=== PATIENT | female | born 1945 | race Caucasian/White ===

== ENCOUNTER 2019-10-03 16:12 | Observation (INO) | payer MEDICARE, OTHER, SELFPAY ==
--- NOTE | ~2019-10-03 | CT_ITS ---
EXAMINATION: CT abdomen pelvis w con DATE: 10/04/2019 13:46 INDICATION: Low abdominal pain. TECHNIQUE: Computed tomography (CT) of the abdomen and pelvis was performed with 100 mL Omnipaque 350 intravenous contrast. Automated exposure control and iterative reconstruction technique were employe d. The dose-length product was 167.22 mGy-cm. COMPARISON: CT abdomen and pelvis 08/04/2019 FINDINGS: The visualized portions of the lung bases demonstrate emphysema. There are mild patchy airs pace opacities in left lower lobe and lingula, consistent with pneumonia. There is a small left pleur al effusion. The heart size is normal. No pericardial effusion. The liver is normal. There are change s of cholecystectomy. The spleen, pancreas, and adrenal glands are normal. There is cortical thinning of the kidneys. There are cysts in left kidney measuring up to 13 mm. There are greater than 10 ston es in right kidney measuring up to 5 mm. There are least 6 stones in left kidney measuring up to at l east 3 mm. There are scattered diverticula in the colon. There is wall thickening of the sigmoid colo n and descending colon with adjacent fat stranding. There is a 4.2 x 2.6 x 4.7 cm abscess adjacent to sigmoid colon. There are no dilated loops of bowel. The appendix is not visualized. There are no pat hologically enlarged lymph nodes. There is no free intraperitoneal fluid. There is severe lumbar spon dylosis. Again seen is a subacute burst fracture of T12. IMPRESSION: 1. Sigmoid diverticulitis with 4.2 x 2.6 x 4.7 cm perisigmoid abscess. 2. Mild pneumonia involving left lower lobe and lingula. 3. Small left pleural effusion. Reviewed, dictated and finalized at location A. [facility]
[2019-10-03 16:40] VITALS: BP 116/74; PULSE 118; RESP 22; TEMP 36.5; O2SAT 97
--- NOTE | 2019-10-03 16:47 | ED.NAVMDI ---
HPI - Nausea/Vomiting/Diarrhea General Chief complaint: Nausea/Vomiting/Diarrhea Stated complaint: 74 YO female w/ chronic respiratory failure on 2L O2 via NC (At baseline) here c/o N/V for 2-4 days. Patient states she hasn't felt well and has had decreased PO intake. Upset stomach and diarrhea Related Data Home Medications Medication Instructions Recorded Confirmed Flovent HFA 2 puff INHALATION Q12H 08/04/19 10/03/19 Stiolto Respimat 2 puff INHALATION Q24H 08/04/19 10/03/19 levalbuterol tartrate [Xopenex HFA] 2 inh INHALATION Q6H PRN 08/04/19 10/03/19 omeprazole 40 mg PO DAILY 08/04/19 10/03/19 dexamethasone 4 mg tablet 2 mg PO BID 09/15/19 10/03/19 acetaminophen 1,000 mg PO Q6H PRN 10/03/19 10/03/19 furosemide 40 mg PO DAILY 10/03/19 10/03/19 ibuprofen 800 mg PO Q6H PRN 10/03/19 10/03/19 levetiracetam 500 mg PO BID 10/03/19 10/03/19 potassium chloride 20 meq PO DAILY 10/03/19 10/03/19 Allergies Allergy/AdvReac Type Severity Reaction Status Date / Time arformoterol [Brovana] Allergy Intermediate edema of Verified 08/17/19 08:35 extremities Review of Systems Review of Systems: All systems reviewed & are unremarkable except as noted in HPI and below Constitutional: Constitutional: Reports as per HPI, Denies body ache(s), Denies chills, Reports fatigue, Denies fever(s) and Reports weakness Cardiovascular: Cardiovascular: Reports as per HPI and Reports no additional cardiovascular complaints Respiratory: Respiratory: Reports as per HPI and Reports no additional respiratory complaints Gastrointestinal: Gastrointestinal: Reports abdominal pain, Reports GI cramping, Reports diarrhea, Reports nausea and Reports vomiting Genitourinary: Genitourinary: Reports no additional female genitourinary complaints and Reports as per HPI Musculoskeletal: Musculoskeletal: Reports no additional musculoskeletal complaints PMFSH Past Medical History Medical History Asthma Brain metabolic disorder Chronic respiratory failure with hypoxia COPD (chronic obstructive pulmonary disease) Depression RODDY (generalized anxiety disorder) Lower extremity edema Lung cancer Malignant neoplasm of lower lobe of left lung Underweight Vitamin D deficiency Surgical History Surgical History H/O: hysterectomy Hx of appendectomy Hx of cholecystectomy Family History Family History (Updated 08/17/19 @ 08:40 by Ashley Franks) Mother Cancer Father Diabetes mellitus Sibling Acute myocardial infarction Colon cancer Social History Social History (Updated 08/17/19 @ 08:45 by Ashley Franks) Smoking packs per day: 1 Smoking cigarettes per day: 20.0 Years smoked: 55 Smoking pack-years: 55.00 Smoking status: Former smoker Tobacco type: cigarettes Additional living arrangements comments: . 4 children. 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 Exam Const: General: cooperative, alert, awake, Physically active and tired appearing Cardio: Jugular venous distension: no JVD Palpation: normal PMI Rate: regular rate Rhythm: regular rhythm Heart sounds: S1 normal heart sound present and S2 normal heart sound present GI: Inspection: normal to inspection GI Palp: Yes abdominal tenderness (Generalized abd TTP), No Rigid due to palpation, No Rebound tenderness present and No Bladder palpation abnormal Percussion: Yes normal to percussion Auscultation: normal bowel sounds Rectal Exam: deferred Course Course Emergency Course: Patient looks weak w/ electrolyte abnormalities. Will admits for observation. Vital Signs Vital signs: Vital Signs Temperature 36.5 C 10/03/19 16:40 Pulse Rate 118 H 10/03/19 16:40 Respiratory Rate 22 H 10/03/19 16:40 Blood Pressure 116/74 10/03/19 16:40 Pulse Oximetry 97 10/03/19 16:40 Temperature 36.5 C 09/16
[2019-10-03 16:53] LABS: Hematocrit 36.1 % (35.0-42.0); Hemoglobin 11.8 g/dL (11.7-13.8); Mean Corpuscular HGB Conc 32.7 g/dL (32.0-36.0); Mean Corpuscular Hemoglobin 32.2 pg (27.0-31.0); Mean Corpuscular Volume 98.6 fL (78.0-102.0); Mean Platelet Volume 9.7 fl (9.2-11.8); Platelet Count Result 449 K/mm3 (150-420); Red Blood Count 3.66 M/mm3 (4.20-5.40); Red Cell Distribution Width 15.9 % (11.6-14.4); White Blood Count 11.3 K/mm3 (4.8-10.8)
[2019-10-03] MEDS: SODIUM CHLORIDE 0.9% IV 500 ML 999 ML IV CONT (16:54)
[2019-10-03] MEDS: ONDANSETRON INJ 4 MG/2 ML VIAL IV PUSH (16:55)
[2019-10-03] MEDS: DICYCLOMINE HCL INJ 20 MG/2 ML VIAL IM (16:59)
[2019-10-03 17:17] LABS: Band Neutrophils Percent 1 % (0-6); Lymphocytes Absolute Manual 0.45 K/mm3 (1.1-4.5); Monocytes Absolute Manual 0.33 K/mm3 (0.1-0.90); Monocytes Percent Manual 3 % (3-9); Neutrophils Percent Manual 92 % (46-73); Total Cells Counted 100
--- NOTE | 2019-10-03 17:17 | PC.NURSE ---
Pt unable to provide urine sample at this time.
[2019-10-03 17:20] LABS: Alanine Aminotransferase 19 U/L (14-59); Albumin Level 2.4 g/dL (3.4-5.0); Alkaline Phosphatase 125 U/L (46-116); Anion Gap 15.8 mmol/L (7-16); Aspartate Amino Transferase 20 U/L (15-37); Bilirubin,Total 0.9 mg/dL (0.00-1.00); Blood Urea Nitrogen 44 mg/dL (7-18); Calcium 9.1 mg/dL (8.5-10.1); Carbon Dioxide 31 mmol/L (21-32); Chloride 94 mmol/L (98-108); Estimated CRCL calculation 22 ml/min; Estimated Glomerular Filt Rate 37; Glucose 164 mg/dL (70-99); Osmolality Calculated 301 mOsm/kg (285-295); Potassium 2.8 mmol/L (3.5-5.1); Sodium 138 mmol/L (136-145); Total Protein 7.4 g/dL (6.4-8.2)
[2019-10-03 17:29] LABS: Lipase 52 U/L (73-393)
[2019-10-03] MEDS: SODIUM CHLORIDE 0.9% IV 1,000 ML 150 ML IV CONT (17:45)
[2019-10-03] MEDS: KCL 20 MEQ/SW 100 ML 100 ML 50 MEQ IVPB (17:46)
[2019-10-03] MEDS: POTASSIUM CHLORIDE 20 MEQ TABLET 40 MEQ PO (17:46)
[2019-10-03 17:51] LABS: Magnesium 1.7 mg/dL (1.8-2.4); Phosphorus 5.3 mg/dL (2.6-4.7)
[2019-10-03 17:52] VITALS: BP 151/86; PULSE 100; RESP 22; O2SAT 98
[2019-10-03 19:12] LABS: Appearance Urine Clear (Clear); Bilirubin Urine 1+ (Negative); Blood Urine Negative (Negative); Color Urine Yellow (Yellow); Glucose Urine UA Negative (Negative); Ketones Urine Negative (Negative); Leukocyte Esterase Ur Negative LEU/UL (Negative); Nitrate Urine Negative (Negative); Protein Urine Negative (Negative); pH Urine 6.5 (5.0-8.0)
[2019-10-03 19:13] LABS: Add Urine Microscopic? NO
[2019-10-03 20:00] VITALS: BP 110/73; BP 122/78; PULSE 106; RESP 18; RESP 22; TEMP 37; O2SAT 95; O2SAT 98
--- NOTE | 2019-10-03 20:00 | ADMGEN ---
This patient, Laine Kate, was admitted to 2nd Floor Room 205-1. Patient oriented to hospital policies and general routines including ID bracelet, bed and alarms, visiting hours, pain management, procedures, bathroom and other care routines, personal items, smoking policy, room service/diet, and visiting hours. Information on how to activate the Rapid Response Team has been discussed. Patient is encouraged to report perceived risks to care and to ask questions if they do not understand what they are told or what they should do.
[2019-10-03 20:04] VITALS: BMI 16.2
[2019-10-03] MEDS: DEXTROSE 5%/0.45% SOD CHL 1,000 ML 100 ML IV CONT (20:37)
[2019-10-03] MEDS: FLUTICASONE PROP 110 MCG INHALER 12 GM (*SP) 2 PUFF INHALATION (20:37)
--- NOTE | 2019-10-03 21:02 | PC.NURSE ---
pt resting in bed, denies any nausea or pain at this time, belongings and call light within reach, no evidence of distress noted.
--- NOTE | 2019-10-03 22:00 | PC.NURSE ---
pt sleeping, respirations even and regular, no evidence of distress noted, call light and belongings within reach
--- NOTE | 2019-10-03 23:10 | PC.NURSE ---
pt sleeping, respirations even and regular, no evidence of distress noted, call light and belongings within reach
--- NOTE | 2019-10-04 00:37 | PC.NURSE ---
Spoke to Dr. Bates regarding a possible drug interaction with dicyclomine.
[2019-10-04 00:45] VITALS: BP 122/72; PULSE 104; RESP 20; TEMP 37.3; O2SAT 96
--- NOTE | 2019-10-04 00:45 | PC.NURSE ---
pt denies any nausea at this time, pt transferred to bsc and back to bed with assistance, pt still weak but tolerated well, belongings and call light within reach
--- NOTE | 2019-10-04 01:45 | PC.NURSE ---
pt resting in bed, denies any nausea or pain at this time, no evidence of distress noted, belongings and call light within reach.
[2019-10-04] MEDS: DICYCLOMINE HCL 10 MG CAPSULE PO ×2 (01:50→08:42)
--- NOTE | 2019-10-04 02:20 | PC.NURSE ---
pt resting in bed IV fluids infusing, denies any nausea at this time,
--- NOTE | 2019-10-04 03:25 | PC.NURSE ---
pt sleeping, respirations even and regular, no evidence of distress noted, call light and belongings within reach, IV fluids infusing
[2019-10-04 04:30] VITALS: BP 116/71; PULSE 96; RESP 20; TEMP 36.7; O2SAT 95
--- NOTE | 2019-10-04 04:30 | PC.NURSE ---
pt resting in bed, vitals taken, denies any nausea, iv fluids infusing well
--- NOTE | 2019-10-04 05:30 | PC.NURSE ---
pt sleeping, no evidence of distress noted, iv fluids infusing well
[2019-10-04 05:35] LABS: Basophils Absolute Auto 0.04 K/mm3 (0.00-0.10); Basophils Percent Auto 0.5 % (0.0-1.0); Eosinophils Absolute Auto 0.01 K/mm3 (0.02-0.50); Eosinophils Percent Auto 0.1 % (1.0-6.0); Hemoglobin 9.7 g/dL (11.7-13.8); Immature Granulocyte Absolute 0.29 K/mm3 (0.00-0.00); Immature Granulocyte Percent A 3.7 % (0.0-0.0); Lymphocytes Absolute Auto 0.48 K/mm3 (1.10-4.50); Lymphocytes Percent Auto 6.1 % (18.0-42.0); Mean Corpuscular HGB Conc 32.3 g/dL (32.0-36.0); Mean Corpuscular Hemoglobin 32.9 pg (27.0-31.0); Mean Corpuscular Volume 101.7 fL (78.0-102.0); Mean Platelet Volume 9.6 fl (9.2-11.8); Monocytes Absolute Auto 0.43 K/mm3 (0.10-0.90); Monocytes Percent Auto 5.5 % (2.0-11.0); Neutrophils Absolute Auto 6.6 K/mm3 (1.7-7.2); Neutrophils Percent Auto 84.1 % (50.0-70.0); Nucleated Red Blood Cells Absolute Auto 0.02 K/mm3 (0.00-0.00); Nucleated Red Blood Cells Perc 0.3 % (0-0.0); Platelet Count Result 399 K/mm3 (150-420); Red Blood Count 2.95 M/mm3 (4.20-5.40); Red Cell Distribution Width 16.3 % (11.6-14.4); White Blood Count 7.8 K/mm3 (4.8-10.8)
[2019-10-04 05:47] LABS: Blood Urea Nitrogen 30 mg/dL (7-18); Calcium 8.3 mg/dL (8.5-10.1); Carbon Dioxide 30 mmol/L (21-32); Chloride 104 mmol/L (98-108); Estimated CRCL calculation 39 ml/min; Estimated Glomerular Filt Rate > 60; Glucose 149 mg/dL (70-99); Magnesium 1.8 mg/dL (1.8-2.4); Osmolality Calculated 303 mOsm/kg (285-295); Sodium 142 mmol/L (136-145)
[2019-10-04] MEDS: DEXTROSE 5%/0.45% SOD CHL 1,000 ML 100 ML IV CONT (07:11)
--- NOTE | 2019-10-04 07:25 | PC.NURSE ---
Resting in bed, oxygen on at 2L as per home dose, IVF's infusing as ordered
[2019-10-04 07:36] VITALS: BP 115/73; PULSE 94; PULSE 96; RESP 20; TEMP 36.8; O2SAT 96
--- NOTE | 2019-10-04 08:10 | PC.NURSE ---
Requesting toast, clear liquid tray given at this time,
--- NOTE | 2019-10-04 08:10 | PCDIET ---
Clear liquids ordered for patient, given jello and water at this time, requesting toast
[2019-10-04] MEDS: FLUTICASONE PROP 110 MCG INHALER 12 GM (*SP) 2 PUFF INHALATION (08:40)
[2019-10-04] MEDS: FUROSEMIDE 40 MG TABLET PO (08:41)
[2019-10-04] MEDS: PANTOPRAZOLE 40 MG TABLET PO (08:41)
[2019-10-04] MEDS: levETIRAcetam 500 MG TABLET PO (08:41)
[2019-10-04] MEDS: DEXAMETHASONE 4 MG TABLET 2 MG PO (08:41)
[2019-10-04] MEDS: ENOXAPARIN 30 MG/0.3 ML SYRINGE SUB-Q (08:43)
--- NOTE | 2019-10-04 08:45 | PC.NURSE ---
pietro russo, requesting toast, hospitalist approved toast to be given
[2019-10-04] MEDS: POTASSIUM CHLORIDE 20 MEQ TABLET PO (08:47)
--- NOTE | 2019-10-04 09:02 | PC.NURSE ---
ate 1/4 of toast, fluids infusing,
--- NOTE | 2019-10-04 09:55 | PC.NURSE ---
SBA up to commode, weakness noted, purse lip breathing noted, fluids infusing, feels like bowels need to move
--- NOTE | 2019-10-04 10:00 | PC.NURSE ---
States x2 loose stools at this time, requesting something for stools, educated on medication being added (calcium, potassium, magnesium), not happy about so many medications being added
[2019-10-04] MEDS: BUDESONIDE/FORMOTEROL (*SP) 160-4.5 MCG 6 GM INH 2 PUFF INHALATION (10:39)
[2019-10-04] MEDS: MAGNESIUM OXIDE 400 MG TABLET PO (10:41)
[2019-10-04] MEDS: CALCIUM CARBONATE (TUMS) 500 MG (200 MG ELEMENTAL) PO (10:41)
--- NOTE | 2019-10-04 11:04 | PC.NURSE ---
Resting in bed, oxygen on fluids infusing
[2019-10-04 11:36] VITALS: PULSE 93; RESP 20
[2019-10-04] MEDS: LOPERAMIDE HCL 2 MG CAPSULE PO (11:44)
[2019-10-04 11:45] VITALS: PULSE 95; RESP 20
--- NOTE | 2019-10-04 11:47 | PC.NURSE ---
Up to BSC, loose stools continue, loperimide given for loose stool. fluids infusing
[2019-10-04 12:00] VITALS: BP 103/63; PULSE 103; RESP 22; TEMP 36.3; O2SAT 97
--- NOTE | 2019-10-04 12:08 | PC.NURSE ---
Resting in bed, fluids infusing
--- NOTE | 2019-10-04 12:39 | PM.IMHP ---
H&P: HPI History of Present Illness Chief complaint: Upset stomach and diarrhea <LAUREN Pineda - Last Filed: 10/04/19 13:55> Narrative: Laine Kate is a 74 year old female who presented to the ED with nausea, vomiting and diarrhea. She has a past medical history of asthma, chronic respiratory failure with hypoxia, COPD, depression, generalized anxiety disorder, lower extremity edema, lung cancer, metastatic disease, brain cancer, underweight, vitamin-D deficiency. She was admitted for dehydration, hypokalemia, and gastroenteritis. according to patient she has [place] ill for the last 2 days. she has a decreased appetite with nausea, vomiting and diarrhea. She has been unable to get out of bed and has been sleeping a lot. She also complains of headaches, lightheadedness, generalized weakness and abdominal cramping and lower quadrant pain. She noted that her son and [id number] insisted that she comes to the ED for treatment. Today patient is very anxious to discharge but is obviously too weak to do so. She does continue to have diarrhea, she is able to tolerate her meals. She is currently on a bland diet, with orders to advances as tolerated. Patient also complains of a headache according to patient she was diagnosed with left-sided lung cancer 1 year ago completed 5 rounds of radiation. She also noted that the cancer had metastasized to her brain that she has not had treatment for yet. She is currently seeing an oncologist and have procedure scheduled this week. She also noted that she later found out that the cancer had metastasized to her right lung and she was also given 5 rounds of radiation for that area. She did note that due to her brain cancer she has had headaches and visual disturbance.current vital signs 36.3, 103, 22, 97% 2 L nasal cannula, 103/63. patient is being admitted for dehydration, gastroenteritis, and hypokalemia. while in the ED imaging indicating emphysema, patient white blood cells were slightly elevated at 13.2, potassium was at 4.3, magnesium and calcium was also low. A CT of the abdomen/ pelvis and stool work up will be completed this stay.Patient denies CP, palpitation, extremity numbness, dizziness, chills or fever. <LAUREN Pineda - Last Filed: 10/04/19 13:55> Review of Systems Constitutional: Constitutional: Reports fatigue, Reports headache(s), Reports poor appetite, Reports weakness and Reports weight loss <LAUREN Pineda - Last Filed: 10/04/19 13:55> Eyes: Eyes: Reports change in vision ( due to brain cancer) <LAUREN Pineda - Last Filed: 10/04/19 13:55> Cardiovascular: Cardiovascular: Denies chest pain at rest, Denies chest pain with activity, Denies edema, Denies leg edema, Reports lightheadedness, Reports dyspnea on exertion and Reports orthopnea <LAUREN Pineda - Last Filed: 10/04/19 13:55> Respiratory: Respiratory: Reports dyspnea and Reports dyspnea on exertion <LAUREN Pineda - Last Filed: 10/04/19 13:55> Gastrointestinal: Gastrointestinal: Reports abdominal pain ( lower quads), Reports GI cramping, Reports diarrhea, Reports nausea and Reports vomiting <LAUREN Pineda - Last Filed: 10/04/19 13:55> Genitourinary: Genitourinary: Denies hematuria, Denies dysuria and Denies urinary urgency <LAUREN Pineda - Last Filed: 10/04/19 13:55> Musculoskeletal: Musculoskeletal: Reports muscle weakness <LAUREN Pineda Last Filed: 10/04/19 13:55> Integumentary/Breasts: Skin/Breast: Reports system reviewed and no additional complaints, except as docu <LAUREN Pineda - Last Filed: 10/04/19 13:55> Neurologic: Reports headache(s) <LAUREN Pineda - Last Filed: 10/04/19 13:55> Psychiatric: Psychiatric: Reports anxiety <LAUREN Pineda - Last Filed: 10/04/19 13:55> [facility] Social History Social History: Social History (Updated 08/17/19 @ 08:45 by Ashley Bacon
[2019-10-04] MEDS: ACETAMINOPHEN 500 MG TABLET 1000 MG PO (12:55)
--- NOTE | 2019-10-04 13:22 | PC.NURSE ---
Up to chair, awaiting imaging for ct scan to be done
--- NOTE | 2019-10-04 13:48 | PC.NURSE ---
Returned from CT scan, up to commode with SBA
--- NOTE | 2019-10-04 14:33 | PC.NURSE ---
Pateint has been accepted at [facility], no bed at this time, fluids infusing, call light in reach
--- NOTE | 2019-10-04 14:43 | PM.DS ---
DS: Diagnosis Admitting Diagnosis Admitting Diagnosis: Secondary malignant neoplasm of unspecified site and perisigmoid abscess Discharge Diagnosis (1) Metastatic disease: Code(s): C79.9 - Secondary malignant neoplasm of unspecified site Status: Acute Assessment and Plan: - patient was diagnosed with left-sided lung CA 1 year ago, and treated with 5 sessions of radiation. It metastasized to her brain, she is currently being seen by oncology for brain CA, it also metastasized to her right lung which she also received 5 sessions of radiation. -Her oncologist are at [facility]- Dr. Tidwell at [phone] Mcdonald [phone]. I will contact them on Saturday, concerning patient's condition. patient noted that she has several tests and imaging schedule this week. (2) Acute hypokalemia: Code(s): E87.6 - Hypokalemia Status: Acute Assessment and Plan: - patient discharged to [facility] - continue potassium supplement, with additional dosage and stop diuretics - no cardiac issues at this time (3) Dehydration: Code(s): E86.0 - Dehydration Status: Acute Assessment and Plan: secondary to nausea and vomiting - correct underlying condition -continue to hydrate via IV - control nausea and vomiting and encourage p.o. intake patient transfer to [facility] (4) Gastroenteritis: Code(s): K52.9 - Noninfective gastroenteritis and colitis, unspecified Status: Acute Assessment and Plan: - continue Zofran for nausea - patient's WBC on admission 13.2 now within normal limits - started Cipro IV antibiotics Flagyl added per oncologist accepting physician (5) Weakness: Code(s): R53.1 - Weakness Status: Acute Assessment and Plan: - secondary to dehydration and gastroenteritis . (6) COPD (chronic obstructive pulmonary disease): Code(s): J44.9 - Chronic obstructive pulmonary disease, unspecified Status: Acute Assessment and Plan: - continue supplementary oxygen , patient on continues 2 L nasal cannular at home. - continue scheduled nebulizers and inhalers. - continue steroids (7) Lung cancer: Code(s): C34.90 - Malignant neoplasm of unspecified part of unspecified bronchus or lung Status: Acute Assessment and Plan: - patient was diagnosed with left-sided lung CA 1 year ago, and treated with 5 sessions of radiation. It metastasized to her brain, she is currently being seen by oncology for brain CA, it also metastasized to her right lung which she also received 5 sessions of radiation. -Her oncologist are at [facility]- Dr. Tidwell at [phone] Mcdonald [phone]. I will contact them on Saturday, concerning patient's condition. patient noted that she has several tests and imaging schedule this week. (8) Diarrhea: Code(s): R19.7 - Diarrhea, unspecified Status: Acute Assessment and Plan: secondary to gastroenteritis - started Imodium - stool panel pending - (9) DVT prophylaxis: Code(s): Z29.9 - Encounter for prophylactic measures, unspecified Status: Acute Assessment and Plan: continue Lovenox (10) Diverticulitis of both large and small intestine with abscess without bleeding: Code(s): K57.40 - Diverticulitis of both small and large intestine with perforation and abscess without bleeding Status: Acute Assessment and Plan: CT of the abdomen indicate-Sigmoid diverticulitis with 4.2 x 2.6 x 4.7 cm perisigmoid abscess. 2. Mild pneumonia involving left lower lobe and lingula. 3. Small left pleural effusion. - patient will transfer to [facility] accepted by Dr. Garcia oncology and will consult surgery - started Mariaa and Shalini per [facility] oncologist Dr. LARSON: Summary Hospital Course Hospital Course: refer to H&P CT of the abdomen and pelvis completed today indicates-Sigmoid diverticulitis with 4.2 x 2.6
[2019-10-04] MEDS: CIPROFLOXACIN 400 MG/D5W 200ML 200 ML 200 MG IVPB (14:50)
--- NOTE | 2019-10-04 15:18 | PC.NURSE ---
Room assignment obtained at [facility], patient updated, cipro infusing, fluids infusing, oxygen on at 2L NC
--- NOTE | 2019-10-04 15:38 | PC.NURSE ---
Report to Nikki at [facility]
[2019-10-04] MEDS: metroNIDAZOLE 500 MG/ISO 100ML 500 MG/100 ML BAG 100 MG IVPB (16:00)
--- NOTE | 2019-10-04 17:05 | PC.NURSE ---
Transfer via [facility] to [facility], fluids continue to infuse at this time, personal items sent with son. copy of hospital record with EMS to deliver to receiving hospital
[2019-10-04 17:23] LABS: Anion Gap 15.2 mmol/L (7-16); Blood Urea Nitrogen 23 mg/dL (7-18); Calcium 8.2 mg/dL (8.5-10.1); Carbon Dioxide 24 mmol/L (21-32); Chloride 101 mmol/L (98-108); Estimated CRCL calculation 34 ml/min; Estimated Glomerular Filt Rate > 60; Glucose 128 mg/dL (70-99); Osmolality Calculated 289 mOsm/kg (285-295); Potassium 3.2 mmol/L (3.5-5.1); Sodium 137 mmol/L (136-145)
[2019-10-04 21:57] LABS: Platelet Estimate Increased (Adequate)
--- NOTE | 2019-10-05 08:12 | P.PNCROSS_ITS ---
Event Note Event Note Event Note: Event note for 10/04/19 For this patient encounter, I reviewed the CVIR TECH or PA documentation, treatment plan, and medical decision making; and I had [id number] time with this patient. Pt. tender LLQ, recommend CT abd/pelvis with contrast.
--- NOTE | 2019-10-05 08:12 | PM.EVENT ---
Event Note Event Note Event Note: Event note for 10/04/19 For this patient encounter, I reviewed the [employer] EQUIPMENT TENDER or PA documentation, treatment plan, and medical decision making; and I had [id number] time with this patient. Pt. tender LLQ, recommend CT abd/pelvis with contrast.
--- NOTE | 2019-10-09 10:20 | PM.DS ---
DS: Diagnosis Admitting Diagnosis Admitting Diagnosis: Secondary malignant neoplasm of unspecified site Discharge Diagnosis (1) Metastatic disease: Code(s): C79.9 - Secondary malignant neoplasm of unspecified site Status: Acute Assessment and Plan: - patient was diagnosed with left-sided lung CA 1 year ago, and treated with 5 sessions of radiation. It metastasized to her brain, she is currently being seen by oncology for brain CA, it also metastasized to her right lung which she also received 5 sessions of radiation. -Her oncologist are at [facility]- Dr. Tidwell at [phone] Mcdonald [phone]. I will contact them on Saturday, concerning patient's condition. patient noted that she has several tests and imaging schedule this week. (2) Acute hypokalemia: Code(s): E87.6 - Hypokalemia Status: Acute Assessment and Plan: - patient discharged to [facility] - continue potassium supplement, with additional dosage and stop diuretics - no cardiac issues at this time (3) Dehydration: Code(s): E86.0 - Dehydration Status: Acute Assessment and Plan: secondary to nausea and vomiting - correct underlying condition -continue to hydrate via IV - control nausea and vomiting and encourage p.o. intake patient transfer to [facility] (4) Gastroenteritis: Code(s): K52.9 - Noninfective gastroenteritis and colitis, unspecified Status: Acute Assessment and Plan: - continue Zofran for nausea - patient's WBC on admission 13.2 now within normal limits - started Cipro IV antibiotics Flagyl added per oncologist accepting physician (5) Weakness: Code(s): R53.1 - Weakness Status: Acute Assessment and Plan: - secondary to dehydration and gastroenteritis . (6) COPD (chronic obstructive pulmonary disease): Code(s): J44.9 - Chronic obstructive pulmonary disease, unspecified Status: Acute Assessment and Plan: - continue supplementary oxygen , patient on continues 2 L nasal cannular at home. - continue scheduled nebulizers and inhalers. - continue steroids (7) Lung cancer: Code(s): C34.90 - Malignant neoplasm of unspecified part of unspecified bronchus or lung Status: Acute Assessment and Plan: - patient was diagnosed with left-sided lung CA 1 year ago, and treated with 5 sessions of radiation. It metastasized to her brain, she is currently being seen by oncology for brain CA, it also metastasized to her right lung which she also received 5 sessions of radiation. -Her oncologist are at [facility]- Dr. Tidwell at [phone] Mcdonald [phone]. I will contact them on Saturday, concerning patient's condition. patient noted that she has several tests and imaging schedule this week. (8) Diarrhea: Code(s): R19.7 - Diarrhea, unspecified Status: Acute Assessment and Plan: secondary to gastroenteritis - started Imodium - stool panel pending - (9) DVT prophylaxis: Code(s): Z29.9 - Encounter for prophylactic measures, unspecified Status: Acute Assessment and Plan: continue Lovenox (10) Diverticulitis of both large and small intestine with abscess without bleeding: Code(s): K57.40 - Diverticulitis of both small and large intestine with perforation and abscess without bleeding Status: Acute Assessment and Plan: CT of the abdomen indicate-Sigmoid diverticulitis with 4.2 x 2.6 x 4.7 cm perisigmoid abscess. 2. Mild pneumonia involving left lower lobe and lingula. 3. Small left pleural effusion. - patient will transfer to [facility] accepted by Dr. Garcia oncology and will consult surgery - started Mariaa and Shalini per [facility] oncologist DS: Summary Time Spent with Patient Time attestation: Total time spent providing and/or coordinating discharge services: Exam Const: General: cooperative and comfortable O
== END 2019-10-04 17:05 | disposition short-term general hospital (02) ==
LOC: CHSED 19:16 → CHS2ND 19:17
PROVIDERS: Nurse Practitioner; Admitting Provider Family Medicine; Emergency Provider Family Medicine; Visit Provider Family Medicine
DX: K52.9 Noninfective gastroenteritis and colitis, unspecified (principal); E86.0 Dehydration; E83.42 Hypomagnesemia; E87.6 Hypokalemia; J96.11 Chronic respiratory failure with hypoxia; C34.32 Malignant neoplasm of lower lobe, left bronchus or lung; C78.01 Secondary malignant neoplasm of right lung; C79.31 Secondary malignant neoplasm of brain; J44.9 Chronic obstructive pulmonary disease, unspecified; E55.9 Vitamin D deficiency, unspecified; E83.51 Hypocalcemia; F41.9 Anxiety disorder, unspecified; K57.20 Diverticulitis of large intestine with perforation and abscess without bleeding
CPT/HCPCS: 36415; 74177; 80048; 80053; 81001; 81003; 83690; 83735; 84100; 85025; 94640; 96361; 96365; 96366; 96367; 96372; 96375; 99283; 99285; A9270; G0378; J0500; J0744; J1650; J2405; J3480; J7030; J7040; J8540; Q9965

== ENCOUNTER 2019-10-22 11:58 | Inpatient (IN) | payer MEDICARE, OTHER, SELFPAY ==
[2019-10-22 12:00] VITALS: BMI 16.7
[2019-10-22 12:14] VITALS: BMI 16.7
--- NOTE | 2019-10-22 12:27 | PC.NURSE ---
Admitted for skilled swing bed to improve strength to go home, oriented to room and hospital procedures, swing bed status reviewed
[2019-10-22 12:30] VITALS: BP 90/56; PULSE 90; RESP 20; TEMP 36.6; O2SAT 97
--- NOTE | 2019-10-22 13:01 | PC.NURSE ---
Given coffee with cream and sugar per request, states not hungry at this time
--- NOTE | 2019-10-22 13:58 | PC.NURSE ---
Up to BSC to void, needed full assist to stand, able to pivot some on her own, very weak, full assist to get back to bed and help to get self up in bed
--- NOTE | 2019-10-22 14:13 | PM.IMHP ---
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 She is here to receive PT/OT and other therapeutic activities to improve her balance, her stability with ambulation, her generalized weakness, recover from her pneumonia and cardiomyopathy, and to improve her nutritional intake. Will continue to treat Diverticulitis of intestine with abscess as non-operative management and antibiotic therapy. According to [facility] discharge note, she has already completed 14 days of Metronidazole and Cipro. Her CT scan showed Community Acquired pneumonia, but the [facility] CXR did not show pneumonia. Due to COPD, she is already on home O2, Flovent, Olodaterol, and Spiriva. Last brain MRI was . Regarding cancer and mets, she is to have an Oncology Follow up (rescheduled from Oct.19). She already completed dexamethasone dosing on per her Radiation Oncologist. Continue her Keppra for seizure prophylaxis. Regarding her stress-induced cardiomyopathy (Takotsubo cardiomyopathy), her last TTE on showed akinesis fo mid and distal segments with hypercontractility of the base consistent with ischemia in the LAD territory or Takotsubo cardiomyopathy. LVEF 48%. Will continue her Lasix 40mg PO daily and Metoprolol 12.5 mg PO daily. After Swing Rehab therapy discharge: Laine is to have a TTE and Cardiology outpatient follow up visit (on the same day) with Dr. Liliya Kohler at [phone] on November 18, 2019 at 9:50am at the [address] Review of Systems Review of Systems: All systems reviewed & are unremarkable except as noted in HPI and below Constitutional: Constitutional: Reports as per HPI, Reports body ache(s), Reports fatigue, Reports lethargy and Reports weakness Eyes: Eyes: Reports as per HPI and Reports blurry vision Comments: Stated that the Brain Mets is causing her blurred vision and headaches. ENT: Reports system reviewed and no additional complaints, except as documented, Reports as per HPI and Reports Normal hearing present Cardiovascular: Cardiovascular: Reports as per HPI and Reports lightheadedness Respiratory: Respiratory: Reports as per HPI, Reports chest congestion, Reports cough, Reports dyspnea and Reports dyspnea on exertion Gastrointestinal: Gastrointestinal: Reports as per HPI and Reports nausea (Nausea in the early mornings, worse with getting up/activity) Genitourinary: Genitourinary: Reports as per HPI Musculoskeletal: Musculoskeletal: Reports as per HPI, Reports back pain and Reports myalgias Integumentary/Breasts: Skin/Breast: Reports system reviewed and no additional complaints, except as docu, Reports as per HPI, Reports dry skin and Reports pruritus Neurologic: Reports system reviewed and no additional complaints, except as documented, Reports as per HPI, Denies Abnormal speech present, Reports abnormal gait, Denies confusion, Denies headache(s) and Denies numbness Psychiatric: Psychiatric: Reports as per HPI, Denies anxiety and Denies confusion PMFSH Past Medical History Medical History Asthma Brain cancer Brain metabolic disorder Cataract Chronic respiratory failure with hypoxia COPD (chronic obstructive pulmonary disease) Depression Encounter for central line placement FH: total abdominal hysterectomy and bilateral salpingo-oophorectomy RODDY (generalized anxiety disorder) GERD (gastroesophageal reflux disease) Hemoptysis History of radiation therapy Hypertension Kidney stone Lower extremity edema Lung cancer Malignant neoplasm of lower lobe of left lung Osteoporosis Plantar wart Post-menopausal Underweight Vitamin
--- NOTE | 2019-10-22 14:29 | PHAR ---
10/22/19: VERIFIED PT.'S HOME SUPPLY OF FLOVENT 220MCG INHALER, SPIRIVA, AND STRIVERDI RESPIMAT. TLS
--- NOTE | 2019-10-22 14:30 | PC.NURSE ---
Resting in bed with head of bed elevated, oxygen on and in place at 2L NC
[2019-10-22 15:56] VITALS: BP 113/62; PULSE 78; RESP 16; TEMP 36.9; O2SAT 96
[2019-10-22] MEDS: NYSTATIN 100,000 UNITS/ML SUSP 5 ML ORAL.SUSP PO ×2 (17:00→21:37)
[2019-10-22] MEDS: levETIRAcetam 500 MG TABLET PO (17:00)
[2019-10-22] MEDS: FLUTICASONE PROP 220 MCG (*SP) 12 GM INHALER 2 PUFF INHALATION (19:03)
[2019-10-22] MEDS: LEVALBUTEROL NEB 1.25 MG/3 ML INHALATION (19:04)
[2019-10-22 19:09] VITALS: PULSE 84; RESP 18
[2019-10-22 19:35] VITALS: PULSE 91; RESP 22; O2SAT 92
[2019-10-22] MEDS: ACETAMINOPHEN 325 MG TABLET 650 MG PO (21:36)
[2019-10-22] MEDS: MELATONIN 5 MG TABLET PO (21:36)
--- NOTE | 2019-10-22 22:31 | PC.NURSE ---
pt appears to be sleeping, hob up, 02 is on, breathing non labored, call light in reach
[2019-10-23] VITALS (11 sets, daily range): BP systolic 102–120; BP diastolic 51–68; PULSE 78–90; RESP 18–20; TEMP 35.9–37.2; O2SAT 95–98
[2019-10-23] MEDS: LEVALBUTEROL NEB 1.25 MG/3 ML INHALATION ×2 (00:05→05:32)
[2019-10-23] MEDS: ACETAMINOPHEN 325 MG TABLET 1000 MG PO (05:48)
[2019-10-23] MEDS: FLUTICASONE PROP 220 MCG (*SP) 12 GM INHALER 2 PUFF INHALATION ×2 (05:48→17:34)
[2019-10-23] MEDS: PANTOPRAZOLE 40 MG TABLET PO (05:48)
--- NOTE | 2019-10-23 05:53 | PC.NURSE ---
[facility] called to clarify medication order.
--- NOTE | 2019-10-23 07:35 | PC.NURSE ---
Noted to have edema to left hand today, right hand with no edema, no pain in hand, no redness, no heat, continues to have weakness, not wanting to get to chair for breakfast at this time, oxygen on at 2L NC, call light in reach
--- NOTE | 2019-10-23 08:05 | PC.NURSE ---
Eating breakfast in bed, denies needs, able to feed herself
--- NOTE | 2019-10-23 08:32 | PC.NURSE ---
Ate well for breakfast, remains in bed, HOB elevated, denies needs at this time, call light in reach of patient
[2019-10-23] MEDS: LIDOCAINE 5% PATCH 1 PATCH TOPICAL (08:53)
[2019-10-23] MEDS: levETIRAcetam 500 MG TABLET PO ×2 (08:55→17:34)
[2019-10-23] MEDS: NYSTATIN 100,000 UNITS/ML SUSP 5 ML ORAL.SUSP PO (08:55)
[2019-10-23] MEDS: ESCITALOPRAM OXALATE 10 MG TABLET PO (08:55)
[2019-10-23] MEDS: FUROSEMIDE 40 MG TABLET PO (08:55)
[2019-10-23] MEDS: METOPROLOL TARTRATE 25 MG TABLET 12.5 MG PO (08:56)
--- NOTE | 2019-10-23 09:40 | PC.NURSE ---
Assisting in sponge bath per OT department
--- NOTE | 2019-10-23 10:05 | PC.NURSE ---
Assisted up to BSC void, pivot turn only, unable to hold own weight without assist from staff to help to steady herself
--- NOTE | 2019-10-23 10:14 | PC.NURSE ---
Assisted to stand up from commode chair, able to support self, however, leans to her back and needs support to stay upright, able to take 5 steps with assist to head of bed for comfort
--- NOTE | 2019-10-23 11:45 | PC.NURSE ---
Up in chair per PT department, call light in reach
--- NOTE | 2019-10-23 12:30 | PC.NURSE ---
Remains in chair at this time, ate fair for lunch
--- NOTE | 2019-10-23 13:24 | PC.NURSE ---
Assisted to stand and to get from chair to commode, then commode to bed, assisted to stand to to lift self up in bed, due to weakness unable to perform on own without hands on assist
--- NOTE | 2019-10-23 14:05 | PC.NURSE ---
Therapy to room to work with patient
--- NOTE | 2019-10-23 14:50 | PC.NURSE ---
OT in to see patient
--- NOTE | 2019-10-23 16:27 | PC.NURSE ---
In bed with HOB elevated, oxygen on at 3L NC, feeling tired,
--- NOTE | 2019-10-23 18:22 | PC.NURSE ---
Remained in bed for dinner, too tired to sit up at this time, advised the more she did the stronger she would get
[2019-10-23] MEDS: MELATONIN 5 MG TABLET PO (20:07)
--- NOTE | 2019-10-23 22:41 | PC.NURSE ---
report given to oncoming nurse, transfer of care at this time.
[2019-10-24] VITALS: BP 120/55; PULSE 92; RESP 18; TEMP 37.3; O2SAT 96
--- NOTE | 2019-10-24 00:14 | PC.NURSE ---
10/23/2019 2300 Patient is resting in bed bedrails up x 2 and call light in reach.
--- NOTE | 2019-10-24 00:15 | PC.NURSE ---
10/24/2019 0000 Patient is has clear lung sound no pain at this time turned to right side. VSS. Bedrails up x 2 call light in reach.
--- NOTE | 2019-10-24 01:02 | PC.NURSE ---
10/24/2019 0100 Patient is sleeping and continues to be on right side. Call light in reach bedrails up x 2.
--- NOTE | 2019-10-24 04:15 | PC.NURSE ---
10/24/2019 0300 Patient is sleeping respirations even and unlabored call light in reach and bedrails up x 2.
--- NOTE | 2019-10-24 04:16 | PC.NURSE ---
10/24/2019 0400 Patient turned right side offered water and commode. Client has no pain at this time. Call light in reach and bedrails up x 2.
[2019-10-24] MEDS: PANTOPRAZOLE 40 MG TABLET PO (06:42)
[2019-10-24] MEDS: NYSTATIN 100,000 UNITS/ML SUSP 5 ML ORAL.SUSP PO ×2 (06:42→19:24)
[2019-10-24] MEDS: FLUTICASONE PROP 220 MCG (*SP) 12 GM INHALER 2 PUFF INHALATION ×2 (06:42→19:24)
[2019-10-24 07:55] VITALS: BP 94/56; PULSE 89; RESP 18; TEMP 36.2; O2SAT 99
[2019-10-24 09:30] VITALS: PULSE 89
[2019-10-24] MEDS: METOPROLOL TARTRATE 25 MG TABLET 12.5 MG PO (09:30)
[2019-10-24] MEDS: FUROSEMIDE 40 MG TABLET PO (09:31)
[2019-10-24] MEDS: ESCITALOPRAM OXALATE 10 MG TABLET PO (09:31)
[2019-10-24] MEDS: levETIRAcetam 500 MG TABLET PO ×2 (09:31→16:48)
[2019-10-24] MEDS: LIDOCAINE 5% PATCH 1 PATCH TOPICAL (10:03)
[2019-10-24 16:00] VITALS: BP 102/58; PULSE 84; RESP 18; TEMP 37.1; O2SAT 99
[2019-10-24] MEDS: MELATONIN 5 MG TABLET PO (21:00)
[2019-10-25] VITALS (9 sets, daily range): BP systolic 98–108; BP diastolic 54–69; PULSE 84–99; RESP 14–20; TEMP 36.6–37; O2SAT 96–98
[2019-10-25] MEDS: FLUTICASONE PROP 220 MCG (*SP) 12 GM INHALER 2 PUFF INHALATION ×2 (07:29→18:39)
[2019-10-25] MEDS: PANTOPRAZOLE 40 MG TABLET PO (07:29)
[2019-10-25] MEDS: NYSTATIN 100,000 UNITS/ML SUSP 5 ML ORAL.SUSP PO ×2 (07:29→18:40)
[2019-10-25 08:31] LABS: Anion Gap 11.4 mmol/L (7-16); Blood Urea Nitrogen 12 mg/dL (7-18); Calcium 8.5 mg/dL (8.5-10.1); Carbon Dioxide 33 mmol/L (21-32); Chloride 105 mmol/L (98-108); Estimated CRCL calculation 62 ml/min; Estimated Glomerular Filt Rate > 60; Glucose 86 mg/dL (70-99); Hematocrit 31.3 % (35.0-42.0); Hemoglobin 9.7 g/dL (11.7-13.8); Magnesium 1.8 mg/dL (1.8-2.4); Mean Corpuscular Hemoglobin 32.3 pg (27.0-31.0); Mean Corpuscular Volume 104.3 fL (78.0-102.0); Osmolality Calculated 300 mOsm/kg (285-295); Phosphorus 3.4 mg/dL (2.6-4.7); Platelet Count Result 470 K/mm3 (150-420); Potassium 3.4 mmol/L (3.5-5.1); Sodium 146 mmol/L (136-145); White Blood Count 8.7 K/mm3 (4.8-10.8)
[2019-10-25 08:33] LABS: BNP 306 pg/mL (0-100)
[2019-10-25 08:34] LABS: CRP 15.7 mg/dL (0.0-0.9)
[2019-10-25 09:16] LABS: Erythrocyte Sedimentation Rate 59 mm/hr (0-20)
[2019-10-25] MEDS: POTASSIUM CHLORIDE 20 MEQ TABLET 40 MEQ PO (10:06)
[2019-10-25] MEDS: levETIRAcetam 500 MG TABLET PO ×2 (10:07→16:32)
[2019-10-25] MEDS: METOPROLOL TARTRATE 25 MG TABLET 12.5 MG PO (10:07)
[2019-10-25] MEDS: FUROSEMIDE 40 MG TABLET PO (10:07)
[2019-10-25] MEDS: LIDOCAINE 5% PATCH 1 PATCH TOPICAL (10:08)
[2019-10-25] MEDS: ESCITALOPRAM OXALATE 10 MG TABLET PO (10:09)
--- NOTE | 2019-10-25 17:16 | PM.IMPN ---
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 She is here to receive PT/OT and other therapeutic activities to improve her balance, her stability with ambulation, her generalized weakness, recover from her pneumonia and cardiomyopathy, and to improve her nutritional intake. PT/OT ordered. Creatinine 0.44. BNP elevated 306. ESR 59, CRP 15.7. ESR and CRP remains elevated. WBC 8.7, H/H stable. Plts 470. Laine stated that she did not want to ever be on life support, so after further discussion witnessed by nursing staff, Laine wanted to sign her DNR code change paperwork today and it was placed in her chart. According to nursing staff Laine is having significant dypsnea with exertion, especially for prolonged activites, such as bathing and then ambulating. If she is unable to improve through Swing Rehab, she may want to have a Palliative care consultation completed at home or prior to discharge. Nursing staff to use foam dressings for further protection on bony prominences. <Jeana Acosta NP - Last Filed: 10/25/19 17:41> (2) Diverticulitis of intestine with abscess: Code(s): K57.80 - Diverticulitis of intestine, part unspecified, with perforation and abscess without bleeding <Jeana Acosta NP - Last Filed: 10/25/19 17:41> Status: Acute <Jeana Acosta NP - Last Filed: 10/25/19 17:41> Assessment and Plan: IMPROVED/RESOLVED. STABLE. BASELINE. Laine Kate is a 74 year old female for Swing Rehab therapy after discharge from [facility] for Diverticulitis of intestine with abscess. She is here to receive PT/OT and other therapeutic activities to improve her balance, her stability with ambulation, her generalized weakness, recover and to improve her nutritional intake. Will continue to treat Diverticulitis of intestine with abscess as non-operative management and antibiotic therapy. According to [facility] discharge note, she has already completed 14 days of Metronidazole and Cipro. She is eating, drinking well, and having BMs. ESR 59, CRP 15.7. ESR and CRP remains elevated. WBC 8.7, H/H stable. Plts 470. <Jeana Acosta DIRECTOR PHARMACY SERVICES - Last Filed: 10/25/19 17:41> (3) CAP (community acquired pneumonia): Code(s): J18.9 - Pneumonia, unspecified organism <Jeana Acosta NP - Last Filed: 10/25/19 17:41> Status: Acute <Jeana Acosta NP - Last Filed: 10/25/19 17:41> Assessment and Plan: IMPROVED/RESOLVED. STABLE. BASELINE. at risk for pneumonia due to history of : COPD, community acquired pneumonia, severe malnutrition, and CHF. She is here to receive PT/OT and other therapeutic activities to recover from her pneumonia and to improve her nutritional intake. Her CT scan showed Community Acquired pneumonia, but the [facility] CXR did not show pneumonia. Due to COPD, she is already on home O2, Flovent, Olodaterol, and Spiriva. Due to new lung findings, she is to have an Oncology Follow up (rescheduled from Oct.19). She is currently on her home inhaler and neb txs.: Flovent, Duo Neb, Xopenex HFA or Nebs, and Stiolto (or substitute) Able to D/C her DuoNebs. <Jeana Acosta, DIRECTOR PHARMACY SERVICES - Last Filed: 10/25/19 17:41> (4) Primary malignant neoplasm of lung with metastasis to brain: Code(s): C34.90 - Malignant neoplasm of unspecified part of unspecified bronchus or lung; C79.31 - Secondary malignant neoplasm of brain <Jeana Acosta DIRECTOR PHARMACY SERVICES - Last Filed: 10/25/19 17:41>
[2019-10-25] MEDS: FLUCONAZOLE 150 MG TABLET PO (18:39)
--- NOTE | 2019-10-25 19:48 | PC.NURSE ---
md notified of persistent itching, order recieved for cool compresses.
[2019-10-25] MEDS: HYDROCORTISONE 1% 30 GM CREAM 1 APPLIC TOPICAL (19:52)
[2019-10-25] MEDS: LEVALBUTEROL NEB 1.25 MG/3 ML INHALATION (19:59)
[2019-10-25] MEDS: MICONAZOLE NITRATE 2% CREAM 30 GM TUBE 1 APPLIC TOPICAL (20:56)
--- NOTE | 2019-10-25 20:57 | P.PNCROSS_ITS ---
Event Note Event Note Event Note: For this patient encounter, I reviewed the MAKE UP OPERATOR or PA documentation, treatment plan, and medical decision making; and I had exrr-dr-bdua time with this patient. Pt is alert, remembers me from previous encounter. Able to sit up in bed unassisted. Lungs sounds clear on my auscultation.
--- NOTE | 2019-10-25 20:57 | PM.EVENT ---
Event Note Event Note Event Note: For this patient encounter, I reviewed the SCHOOL BUS MONITOR or PA documentation, treatment plan, and medical decision making; and I had dcyt-hp-euxz time with this patient. Pt is alert, remembers me from previous encounter. Able to sit up in bed unassisted. Lungs sounds clear on my auscultation.
[2019-10-25] MEDS: MELATONIN 5 MG TABLET PO (21:00)
[2019-10-26] VITALS: BP 106/50; PULSE 84; RESP 20; TEMP 36.2; O2SAT 100
[2019-10-26] MEDS: NYSTATIN 100,000 UNITS/ML SUSP 5 ML ORAL.SUSP PO ×2 (06:22→18:11)
[2019-10-26] MEDS: FLUTICASONE PROP 220 MCG (*SP) 12 GM INHALER 2 PUFF INHALATION ×2 (06:22→18:11)
[2019-10-26] MEDS: PANTOPRAZOLE 40 MG TABLET PO (06:22)
[2019-10-26] MEDS: LORAZEPAM 0.5 MG TABLET PO (07:55)
[2019-10-26 08:00] VITALS: BP 93/60; PULSE 98; RESP 20; TEMP 37.2; O2SAT 99
--- NOTE | 2019-10-26 09:05 | ECG_ITS ---
Measurements Intervals [place] Rate: 97 P: 76 NH: 146 QRS: 65 QRSD: 90 T: 154 QT: 357 QTc: 454 Interpretive Statements SINUS RHYTHM ATRIAL PREMATURE COMPLEXES POSSIBLE RIGHT ATRIAL ENLARGEMENT ST-T WAVE ABNORMALITY IN ANTEROLATERAL LEADS- CONSIDER ISCHEMIA BASELINE ARTIFACT- I, III, AVL ABNORMAL ECG Electronically Signed On 10-26-2019 14:01:48 [employer]LEACH BOILER PULLER by Alberto Schmidt D.O.
[2019-10-26 09:32] VITALS: PULSE 94
[2019-10-26] MEDS: MAGNESIUM OXIDE 400 MG TABLET PO (09:32)
[2019-10-26] MEDS: POTASSIUM CHLORIDE 20 MEQ TABLET 40 MEQ PO (09:32)
[2019-10-26] MEDS: ESCITALOPRAM OXALATE 10 MG TABLET PO (09:32)
[2019-10-26] MEDS: METOPROLOL TARTRATE 25 MG TABLET 12.5 MG PO (09:32)
[2019-10-26] MEDS: levETIRAcetam 500 MG TABLET PO ×2 (09:33→18:11)
[2019-10-26] MEDS: FUROSEMIDE 40 MG TABLET PO (09:33)
[2019-10-26] MEDS: TRIAMCINOLONE ACET 0.1% CREAM 15 GM TUBE 1 APPLIC TOPICAL ×2 (09:34→21:03)
[2019-10-26] MEDS: MICONAZOLE NITRATE 2% CREAM 30 GM TUBE 1 APPLIC TOPICAL (09:34)
[2019-10-26] MEDS: LIDOCAINE 5% PATCH 1 PATCH TOPICAL (09:34)
[2019-10-26] MEDS: FLUCONAZOLE 100 MG TABLET 400 MG PO (13:20)
[2019-10-26] MEDS: LORATADINE 10 MG TABLET PO (13:20)
[2019-10-26] MEDS: TOLNAFTATE 1% POWDER 45 GM BTL 1 APPLIC TOPICAL ×2 (15:39→21:03)
[2019-10-26 16:00] VITALS: BP 103/60; PULSE 78; RESP 18; TEMP 36.6; O2SAT 95
[2019-10-26] MEDS: MELATONIN 5 MG TABLET PO (21:03)
[2019-10-27] VITALS: BP 105/56; PULSE 87; RESP 95; TEMP 36.4
[2019-10-27] MEDS: NYSTATIN 100,000 UNITS/ML SUSP 5 ML ORAL.SUSP PO ×2 (05:50→20:08)
[2019-10-27] MEDS: PANTOPRAZOLE 40 MG TABLET PO (05:50)
[2019-10-27] MEDS: FLUTICASONE PROP 220 MCG (*SP) 12 GM INHALER 2 PUFF INHALATION ×2 (05:51→20:08)
[2019-10-27 07:50] VITALS: BP 104/56; PULSE 106; RESP 12; TEMP 36.8; O2SAT 95
[2019-10-27] MEDS: ACETAMINOPHEN 500 MG TABLET 1000 MG BY MOUTH (08:31)
[2019-10-27 08:32] VITALS: PULSE 104
[2019-10-27] MEDS: LORATADINE 10 MG TABLET PO (08:32)
[2019-10-27] MEDS: levETIRAcetam 500 MG TABLET PO ×2 (08:32→16:37)
[2019-10-27] MEDS: FUROSEMIDE 40 MG TABLET PO (08:32)
[2019-10-27] MEDS: POTASSIUM CHLORIDE 20 MEQ TABLET 40 MEQ PO (08:32)
[2019-10-27] MEDS: ESCITALOPRAM OXALATE 10 MG TABLET PO (08:32)
[2019-10-27] MEDS: METOPROLOL TARTRATE 25 MG TABLET 12.5 MG PO (08:32)
[2019-10-27] MEDS: MAGNESIUM OXIDE 400 MG TABLET PO (08:32)
[2019-10-27] MEDS: LIDOCAINE 5% PATCH 1 PATCH TOPICAL (08:33)
[2019-10-27] MEDS: TOLNAFTATE 1% POWDER 45 GM BTL 1 APPLIC TOPICAL ×2 (08:37→20:08)
[2019-10-27] MEDS: TRIAMCINOLONE ACET 0.1% CREAM 15 GM TUBE 1 APPLIC TOPICAL ×2 (08:37→20:09)
[2019-10-27] MEDS: FLUCONAZOLE 100 MG TABLET 400 MG PO (11:41)
[2019-10-27] MEDS: ONDANSETRON HCL ODT 4 MG TABLET PO (13:12)
--- NOTE | 2019-10-27 14:48 | PC.NURSE ---
Patient transferred to bed. Call light in reach.
[2019-10-27 16:00] VITALS: BP 99/58; PULSE 80; RESP 16; TEMP 36.9; O2SAT 95
[2019-10-27] MEDS: MELATONIN 5 MG TABLET PO (20:08)
[2019-10-28 00:05] VITALS: BP 105/61; PULSE 80; RESP 18; TEMP 36.6; O2SAT 95
[2019-10-28] MEDS: MICONAZOLE NITRATE 2% CREAM 30 GM TUBE 1 APPLIC TOPICAL (05:06)
[2019-10-28] MEDS: FLUTICASONE PROP 220 MCG (*SP) 12 GM INHALER 2 PUFF INHALATION ×2 (05:39→19:08)
[2019-10-28] MEDS: PANTOPRAZOLE 40 MG TABLET PO (05:39)
[2019-10-28] MEDS: NYSTATIN 100,000 UNITS/ML SUSP 5 ML ORAL.SUSP PO ×2 (05:39→19:09)
[2019-10-28 07:54] VITALS: BP 109/70; PULSE 90; RESP 16; TEMP 36.9; O2SAT 98
[2019-10-28] MEDS: LORATADINE 10 MG TABLET PO (09:31)
[2019-10-28] MEDS: TOLNAFTATE 1% POWDER 45 GM BTL 1 APPLIC TOPICAL ×2 (09:31→21:20)
[2019-10-28] MEDS: TRIAMCINOLONE ACET 0.1% CREAM 15 GM TUBE 1 APPLIC TOPICAL ×2 (09:31→21:20)
[2019-10-28] MEDS: MEGESTROL ACETATE (*CHEMO) 40 MG TABLET (09:31)
[2019-10-28] MEDS: POTASSIUM CHLORIDE 20 MEQ TABLET 40 MEQ PO (09:32)
[2019-10-28] MEDS: FUROSEMIDE 40 MG TABLET PO (09:32)
[2019-10-28] MEDS: ONDANSETRON HCL ODT 4 MG TABLET PO (09:32)
[2019-10-28] MEDS: ESCITALOPRAM OXALATE 10 MG TABLET PO (09:32)
[2019-10-28] MEDS: LIDOCAINE 5% PATCH 1 PATCH TOPICAL (09:32)
[2019-10-28] MEDS: MAGNESIUM OXIDE 400 MG TABLET PO (09:32)
[2019-10-28] MEDS: MEGESTROL ACETATE (*CHEMO) 40 MG TABLET PO ×3 (09:46→16:55)
[2019-10-28] MEDS: levETIRAcetam 500 MG TABLET PO ×2 (09:49→16:55)
[2019-10-28 10:33] VITALS: PULSE 90
[2019-10-28] MEDS: METOPROLOL TARTRATE 25 MG TABLET 12.5 MG PO (10:33)
[2019-10-28] MEDS: FLUCONAZOLE 100 MG TABLET 400 MG PO (12:45)
--- NOTE | 2019-10-28 14:08 | PC.NURSE ---
Transferred patient from bed to commode. Max assist. Call light in reach
--- NOTE | 2019-10-28 14:30 | PC.NURSE ---
Patient lotioned, generalized
--- NOTE | 2019-10-28 14:32 | PC.NURSE ---
Pre screener here
[2019-10-28 15:54] VITALS: BP 109/71; PULSE 71; RESP 16; TEMP 37.2; O2SAT 99
[2019-10-28] MEDS: MELATONIN 5 MG TABLET PO (21:15)
[2019-10-29] MEDS: NYSTATIN 100,000 UNITS/ML SUSP 5 ML ORAL.SUSP PO ×2 (05:53→17:22)
[2019-10-29] MEDS: PANTOPRAZOLE 40 MG TABLET PO (05:53)
[2019-10-29] MEDS: FLUTICASONE PROP 220 MCG (*SP) 12 GM INHALER 2 PUFF INHALATION ×2 (05:54→17:24)
[2019-10-29 08:00] VITALS: BP 118/80; PULSE 95; RESP 16; TEMP 36.8; O2SAT 98
[2019-10-29] MEDS: LIDOCAINE 5% PATCH 1 PATCH TOPICAL (10:10)
[2019-10-29] MEDS: POTASSIUM CHLORIDE 20 MEQ TABLET 40 MEQ PO (10:11)
[2019-10-29] MEDS: levETIRAcetam 500 MG TABLET PO ×2 (10:13→17:22)
[2019-10-29] MEDS: FUROSEMIDE 40 MG TABLET PO (10:13)
[2019-10-29] MEDS: MEGESTROL ACETATE (*CHEMO) 40 MG TABLET PO ×3 (10:13→17:22)
[2019-10-29] MEDS: LORATADINE 10 MG TABLET PO (10:13)
[2019-10-29 10:14] VITALS: PULSE 95
[2019-10-29] MEDS: METOPROLOL TARTRATE 25 MG TABLET 12.5 MG PO (10:14)
[2019-10-29] MEDS: ESCITALOPRAM OXALATE 10 MG TABLET PO (10:14)
[2019-10-29] MEDS: MAGNESIUM OXIDE 400 MG TABLET PO (10:14)
[2019-10-29] MEDS: DOCUSATE SODIUM 100 MG CAPSULE PO ×2 (10:17→21:21)
[2019-10-29 16:03] VITALS: BP 98/46; PULSE 78; RESP 16; TEMP 36.2; O2SAT 96
[2019-10-29] MEDS: TRIAMCINOLONE ACET 0.1% CREAM 15 GM TUBE 1 APPLIC TOPICAL (21:21)
[2019-10-29] MEDS: TOLNAFTATE 1% POWDER 45 GM BTL 1 APPLIC TOPICAL (21:21)
[2019-10-29] MEDS: MELATONIN 5 MG TABLET PO (21:21)
[2019-10-29 21:44] VITALS: BP 99/54; PULSE 89; RESP 18; TEMP 36.6; O2SAT 95
[2019-10-30] MEDS: PANTOPRAZOLE 40 MG TABLET PO (05:44)
[2019-10-30] MEDS: FLUTICASONE PROP 220 MCG (*SP) 12 GM INHALER 2 PUFF INHALATION ×2 (05:44→18:56)
[2019-10-30] MEDS: NYSTATIN 100,000 UNITS/ML SUSP 5 ML ORAL.SUSP PO ×2 (05:44→18:56)
[2019-10-30 08:00] VITALS: BP 95/53; PULSE 102; RESP 16; TEMP 37; O2SAT 97
[2019-10-30] MEDS: MEGESTROL ACETATE (*CHEMO) 40 MG TABLET PO ×3 (09:27→16:56)
[2019-10-30] MEDS: LIDOCAINE 5% PATCH 1 PATCH TOPICAL (09:27)
[2019-10-30] MEDS: POTASSIUM CHLORIDE 20 MEQ TABLET 40 MEQ PO (09:27)
[2019-10-30] MEDS: levETIRAcetam 500 MG TABLET PO ×2 (09:27→16:56)
[2019-10-30 09:28] VITALS: PULSE 103
[2019-10-30] MEDS: ESCITALOPRAM OXALATE 10 MG TABLET PO (09:28)
[2019-10-30] MEDS: LORATADINE 10 MG TABLET PO (09:28)
[2019-10-30] MEDS: FUROSEMIDE 40 MG TABLET PO (09:28)
[2019-10-30] MEDS: MAGNESIUM OXIDE 400 MG TABLET PO (09:28)
[2019-10-30] MEDS: METOPROLOL TARTRATE 25 MG TABLET 12.5 MG PO (09:28)
[2019-10-30] MEDS: DOCUSATE SODIUM 100 MG CAPSULE PO ×2 (09:28→20:33)
[2019-10-30] MEDS: TOLNAFTATE 1% POWDER 45 GM BTL 1 APPLIC TOPICAL ×2 (09:36→20:33)
[2019-10-30] MEDS: TRIAMCINOLONE ACET 0.1% CREAM 15 GM TUBE 1 APPLIC TOPICAL ×2 (09:48→20:34)
[2019-10-30] MEDS: SALMETEROL XINAFOATE 50 MCG DISKUS 1 PUFF INHALATION ×2 (11:40→20:33)
--- NOTE | 2019-10-30 11:59 | PC.NURSE ---
OT ambulated patient from bed to restroom to recliner. Call light in reach.
[2019-10-30] MEDS: polyethylene glycoL 3350 17 GM POWD.PACK PO (15:20)
[2019-10-30 15:45] VITALS: BP 95/51; PULSE 76; RESP 12; TEMP 36.4; O2SAT 97
--- NOTE | 2019-10-30 19:35 | PC.NURSE ---
Patient resting in bed with hob elevated. Denies any need at present.02@1L per nc on. Call light and belongings within reach.
[2019-10-30] MEDS: MELATONIN 5 MG TABLET PO (20:33)
[2019-10-30 20:35] VITALS: O2SAT 97
--- NOTE | 2019-10-30 21:40 | PC.NURSE ---
Patient resting quietly in bed. No distress noted. Call light at side.
--- NOTE | 2019-10-30 22:40 | PC.NURSE ---
Pt. sleeping quietly in bed with hob elevated. No signs of distress noted. Breathing even and unlabored.
[2019-10-30 23:47] VITALS: BP 98/46; PULSE 84; RESP 16; TEMP 36.2; O2SAT 98
--- NOTE | 2019-10-30 23:49 | PC.NURSE ---
O2 1L per nc continues. Head of bed elevated.
[2019-10-31] MEDS: FLUTICASONE PROP 220 MCG (*SP) 12 GM INHALER 2 PUFF INHALATION ×2 (06:43→18:44)
[2019-10-31] MEDS: NYSTATIN 100,000 UNITS/ML SUSP 5 ML ORAL.SUSP PO ×2 (06:43→18:41)
[2019-10-31] MEDS: PANTOPRAZOLE 40 MG TABLET PO (06:44)
[2019-10-31 07:45] VITALS: BP 99/55; PULSE 80; RESP 18; TEMP 36.6; O2SAT 97; O2SAT 99
[2019-10-31 09:35] VITALS: PULSE 77
[2019-10-31] MEDS: LORATADINE 10 MG TABLET PO (09:35)
[2019-10-31] MEDS: METOPROLOL TARTRATE 25 MG TABLET 12.5 MG PO (09:35)
[2019-10-31] MEDS: DOCUSATE SODIUM 100 MG CAPSULE PO ×2 (09:35→20:15)
[2019-10-31] MEDS: LIDOCAINE 5% PATCH 1 PATCH TOPICAL (09:36)
[2019-10-31] MEDS: MAGNESIUM OXIDE 400 MG TABLET PO (09:36)
[2019-10-31] MEDS: ESCITALOPRAM OXALATE 10 MG TABLET PO (09:36)
[2019-10-31] MEDS: POTASSIUM CHLORIDE 20 MEQ TABLET 40 MEQ PO (09:36)
[2019-10-31] MEDS: levETIRAcetam 500 MG TABLET PO ×2 (09:36→18:41)
[2019-10-31] MEDS: FUROSEMIDE 40 MG TABLET PO (09:36)
[2019-10-31] MEDS: MEGESTROL ACETATE (*CHEMO) 40 MG TABLET PO ×3 (09:36→18:41)
[2019-10-31] MEDS: SALMETEROL XINAFOATE 50 MCG DISKUS 1 PUFF INHALATION ×2 (09:37→20:15)
[2019-10-31] MEDS: TOLNAFTATE 1% POWDER 45 GM BTL 1 APPLIC TOPICAL ×2 (09:38→20:15)
[2019-10-31] MEDS: TRIAMCINOLONE ACET 0.1% CREAM 15 GM TUBE 1 APPLIC TOPICAL ×2 (09:38→20:15)
[2019-10-31] MEDS: SIMETHICONE 80 MG TAB.CHEW PO (13:40)
[2019-10-31 15:30] VITALS: BP 122/67; PULSE 80; RESP 18; TEMP 36.8; O2SAT 100
[2019-10-31 20:00] VITALS: PULSE 84; RESP 20; O2SAT 94
[2019-10-31] MEDS: MELATONIN 5 MG TABLET PO (20:15)
--- NOTE | 2019-10-31 23:15 | PC.NURSE ---
Patient appears to be sleeping by the rise and fall of her chest. No distress noted. Call light in reach.
[2019-11-01] VITALS: BP 117/60; PULSE 90; RESP 18; TEMP 36.6; O2SAT 95
--- NOTE | 2019-11-01 01:00 | PC.NURSE ---
Patient appears to be sleeping by the rise and fall of her chest. No distress noted. Call light in reach.
--- NOTE | 2019-11-01 01:05 | PC.NURSE ---
Patient appears to be sleeping by the rise and fall of her chest. o2 on @ 1 lpm/nc. No distress noted. Call light in reach.
--- NOTE | 2019-11-01 03:05 | PC.NURSE ---
Patient appears to be sleeping by the rise and fall of her chest. No distress noted. O2 on @ 1 lpm/nc. Call light in reach.
[2019-11-01] MEDS: FLUTICASONE PROP 220 MCG (*SP) 12 GM INHALER 2 PUFF INHALATION (06:20)
[2019-11-01] MEDS: PANTOPRAZOLE 40 MG TABLET PO (06:20)
[2019-11-01] MEDS: NYSTATIN 100,000 UNITS/ML SUSP 5 ML ORAL.SUSP PO (06:20)
[2019-11-01 08:00] VITALS: BP 114/58; PULSE 91; RESP 20; TEMP 37.1; O2SAT 95
[2019-11-01] MEDS: POTASSIUM CHLORIDE 20 MEQ TABLET 40 MEQ PO (08:00)
[2019-11-01] MEDS: DOCUSATE SODIUM 100 MG CAPSULE PO ×2 (09:00→21:19)
[2019-11-01] MEDS: MEGESTROL ACETATE (*CHEMO) 40 MG TABLET PO ×2 (09:00→12:56)
[2019-11-01] MEDS: levETIRAcetam 500 MG TABLET PO ×2 (09:25→19:07)
[2019-11-01 09:26] VITALS: PULSE 91
[2019-11-01] MEDS: METOPROLOL TARTRATE 25 MG TABLET 12.5 MG PO (09:26)
[2019-11-01] MEDS: LORATADINE 10 MG TABLET PO (09:27)
[2019-11-01] MEDS: MAGNESIUM OXIDE 400 MG TABLET PO (09:27)
[2019-11-01] MEDS: TRIAMCINOLONE ACET 0.1% CREAM 15 GM TUBE 1 APPLIC TOPICAL ×2 (09:28→21:25)
[2019-11-01] MEDS: FUROSEMIDE 40 MG TABLET PO (09:28)
[2019-11-01] MEDS: ESCITALOPRAM OXALATE 10 MG TABLET PO (09:28)
[2019-11-01] MEDS: TOLNAFTATE 1% POWDER 45 GM BTL 1 APPLIC TOPICAL ×2 (09:28→21:25)
[2019-11-01] MEDS: SALMETEROL XINAFOATE 50 MCG DISKUS 1 PUFF INHALATION ×2 (09:29→21:19)
[2019-11-01] MEDS: LIDOCAINE 5% PATCH 1 PATCH TOPICAL (09:29)
--- NOTE | 2019-11-01 11:24 | PC.NURSE ---
Pt with pt.
--- NOTE | 2019-11-01 12:32 | PC.NURSE ---
Spo2 89%. O2 put on back @ 2L per nc/
--- NOTE | 2019-11-01 13:40 | PC.NURSE ---
To BSC then to bed, using walkler, assist of one. Full assist with sponge bath.
[2019-11-01] MEDS: BISACODYL 10 MG SUPPOSITORY RECTAL (13:56)
--- NOTE | 2019-11-01 14:32 | PC.NURSE ---
Pt expelled sm amt yellow formed stool.
--- NOTE | 2019-11-01 15:05 | PC.NURSE ---
RN VERIFY P KRUPA LYNCHN CHARTING
[2019-11-01 15:50] VITALS: BP 100/65; PULSE 91; RESP 18; TEMP 37.3; O2SAT 93
--- NOTE | 2019-11-01 17:35 | PC.NURSE ---
Patient having cramping and nausea. States she does not want any medication to help, she just wants to rest. Refused all 1700 medication. Pt. resting in bed with hob elevated. Call light at side.
[2019-11-01 20:00] VITALS: PULSE 88; RESP 20; O2SAT 93
[2019-11-01] MEDS: MELATONIN 5 MG TABLET PO (21:19)
[2019-11-02] VITALS: BP 101/56; PULSE 92; RESP 20; TEMP 36.5; O2SAT 91
[2019-11-02] MEDS: FLUTICASONE PROP 220 MCG (*SP) 12 GM INHALER 2 PUFF INHALATION ×2 (06:17→18:22)
[2019-11-02] MEDS: PANTOPRAZOLE 40 MG TABLET PO (06:17)
[2019-11-02] MEDS: NYSTATIN 100,000 UNITS/ML SUSP 5 ML ORAL.SUSP PO ×2 (06:17→18:21)
[2019-11-02 08:00] VITALS: BP 109/57; PULSE 82; RESP 22; TEMP 36.4; O2SAT 96
[2019-11-02] MEDS: SALMETEROL XINAFOATE 50 MCG DISKUS 1 PUFF INHALATION ×2 (10:14→21:40)
[2019-11-02 10:16] VITALS: PULSE 74
[2019-11-02] MEDS: MAGNESIUM OXIDE 400 MG TABLET PO (10:16)
[2019-11-02] MEDS: levETIRAcetam 500 MG TABLET PO ×2 (10:16→16:52)
[2019-11-02] MEDS: METOPROLOL TARTRATE 25 MG TABLET 12.5 MG PO (10:16)
[2019-11-02] MEDS: POTASSIUM CHLORIDE 20 MEQ TABLET 40 MEQ PO (10:16)
[2019-11-02] MEDS: FUROSEMIDE 40 MG TABLET PO (10:17)
[2019-11-02] MEDS: DOCUSATE SODIUM 100 MG CAPSULE PO ×2 (10:17→21:40)
[2019-11-02] MEDS: ESCITALOPRAM OXALATE 10 MG TABLET PO (10:17)
[2019-11-02] MEDS: MEGESTROL ACETATE (*CHEMO) 40 MG TABLET PO ×3 (10:17→16:52)
[2019-11-02] MEDS: LIDOCAINE 5% PATCH 1 PATCH TOPICAL (10:17)
[2019-11-02] MEDS: LORATADINE 10 MG TABLET PO (10:17)
[2019-11-02] MEDS: TRIAMCINOLONE ACET 0.1% CREAM 15 GM TUBE 1 APPLIC TOPICAL ×2 (10:18→21:40)
[2019-11-02] MEDS: TOLNAFTATE 1% POWDER 45 GM BTL 1 APPLIC TOPICAL ×2 (10:18→21:40)
--- NOTE | 2019-11-02 12:57 | PM.IMPN ---
Progress Note: A&P Assessment and Plan (1) Weakness: Code(s): R53.1 - Weakness Status: Acute Assessment and Plan: - continue physical therapy occupational therapy -continue proper nutrition for strength - use of DME if needed to prevent falls - patient able to walk 30 ft x 2 with wheeled walker and contact guard assist - physical therapy progressing (2) Diverticulitis of intestine with abscess: Code(s): K57.80 - Diverticulitis of intestine, part unspecified, with perforation and abscess without bleeding Status: Acute Assessment and Plan: IMPROVED/RESOLVED. STABLE. BASELINE. - patient received antibiotics before discharging from [facility] - white count within normal limits and patient afebrile - no signs and symptoms of infection noted - BP CBC in the a.m. (3) CAP (community acquired pneumonia): Code(s): J18.9 - Pneumonia, unspecified organism Status: Acute Assessment and Plan: IMPROVED/RESOLVED. STABLE. BASELINE. Her CT scan showed Community Acquired pneumonia, but the [facility] CXR did not show pneumonia. She is currently on her home inhaler and neb txs.: Flovent, Duo Neb, Xopenex HFA or Nebs, and Stiolto (or substitute) continue use of oxygen (4) Primary malignant neoplasm of lung with metastasis to brain: Code(s): C34.90 - Malignant neoplasm of unspecified part of unspecified bronchus or lung; C79.31 - Secondary malignant neoplasm of brain Status: Acute Assessment and Plan: STABLE. BASELINE. 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 She already completed dexamethasone dosing on . per her Radiation Oncologist. Continue her Keppra for seizure prophylaxis. (5) Takotsubo cardiomyopathy: Code(s): I51.81 - Takotsubo syndrome Status: Acute Assessment and Plan: IMPROVED/RESOLVED. STABLE. BASELINE. Stress-induced cardiomyopathy (Takotsubo cardiomyopathy), her last TTE on showed akinesis fo mid and distal segments with hypercontractility of the base consistent with ischemia in the LAD territory or Takotsubo cardiomyopathy. LVEF 48%. Will continue her Lasix 40mg PO daily and Metoprolol 12.5 mg PO daily. Daily weights Strict Intake and outputs ordered. After Swing Rehab therapy discharge: Laine is to have a TTE and Cardiology outpatient follow up visit (on the same day) with Dr. Liliya Kohler at [phone] on November 18, 2019 at 9:50am at the [address] Ordered daily KCL replenishment.. Subjective Date/time seen: 11/02/19 12:57 patient noted that she continues to feel constipated. She was given a suppository yesterday with a small bowel movement. I will give her another suppository today. Patient appetite has increased and she noted that she is doing okay and physical therapy. Patient able to tolerate all meals , And slept well . Patient denies CP, palpitation, extremity numbness, lightheadness, dizziness, or chills or fever. she will continue physical occupational therapy Review of Systems Review of Systems: All systems reviewed & are unremarkable except as noted in HPI and below Constitutional: Constitutional: Reports as per HPI, Denies chills, Denies fatigue, Denies fever(s), Denies headache(s) and Reports weakness Eyes: Eyes: Reports as per HPI and Reports blurry vision ENT: Reports system reviewed and no additional complaints, except as documented, Reports as per HPI, Reports Normal hearing present and Denies headache(s) Cardiovascular: Cardiovascular: Reports as per HPI, Reports dyspnea and Reports dyspnea on exertion Respiratory: Respiratory: Reports as per HPI, Reports cough, Reports dyspnea and Reports dyspnea on exertion Gastrointestinal: Gastrointestinal: Reports as per HPI and Reports constipation Genitourinary: Genitourinary: Reports as per HPI Musculoskeletal: Musculoskeletal: Reports as per
--- NOTE | 2019-11-02 13:18 | WPDPN ---
Progress Note: A&P Assessment and Plan (1) Weakness: Code(s): R53.1 - Weakness Status: Acute Assessment and Plan: - continue physical therapy occupational therapy -continue proper nutrition for strength - use of DME if needed to prevent falls - patient able to walk 30 ft x 2 with wheeled walker and contact guard assist - physical therapy progressing (2) Diverticulitis of intestine with abscess: Code(s): K57.80 - Diverticulitis of intestine, part unspecified, with perforation and abscess without bleeding Status: Acute Assessment and Plan: IMPROVED/RESOLVED. STABLE. BASELINE. - patient received antibiotics before discharging from [facility] - white count within normal limits and patient afebrile - no signs and symptoms of infection noted - BP CBC in the a.m. (3) CAP (community acquired pneumonia): Code(s): J18.9 - Pneumonia, unspecified organism Status: Acute Assessment and Plan: IMPROVED/RESOLVED. STABLE. BASELINE. Her CT scan showed Community Acquired pneumonia, but the [facility] CXR did not show pneumonia. She is currently on her home inhaler and neb txs.: Flovent, Duo Neb, Xopenex HFA or Nebs, and Stiolto (or substitute) continue use of oxygen (4) Primary malignant neoplasm of lung with metastasis to brain: Code(s): C34.90 - Malignant neoplasm of unspecified part of unspecified bronchus or lung; C79.31 - Secondary malignant neoplasm of brain Status: Acute Assessment and Plan: STABLE. BASELINE. 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 She already completed dexamethasone dosing on . per her Radiation Oncologist. Continue her Keppra for seizure prophylaxis. (5) Takotsubo cardiomyopathy: Code(s): I51.81 - Takotsubo syndrome Status: Acute Assessment and Plan: IMPROVED/RESOLVED. STABLE. BASELINE. Stress-induced cardiomyopathy (Takotsubo cardiomyopathy), her last TTE on showed akinesis fo mid and distal segments with hypercontractility of the base consistent with ischemia in the LAD territory or Takotsubo cardiomyopathy. LVEF 48%. Will continue her Lasix 40mg PO daily and Metoprolol 12.5 mg PO daily. Daily weights Strict Intake and outputs ordered. After Swing Rehab therapy discharge: Laine is to have a TTE and Cardiology outpatient follow up visit (on the same day) with Dr. Liliya Kohler at [phone] on November 18, 2019 at 9:50am at the [address] Ordered daily KCL replenishment.. Objective Data Vital Signs Vital Signs: Vital Signs - 24 hr 11/01/19 15:50 11/01/19 20:00 11/02/19 00:00 Temperature 37.3 C 36.5 C Pulse Rate 91 88 92 Respiratory Rate 18 20 20 Blood Pressure 100/65 101/56 L Pulse Oximetry 93 93 91 11/02/19 08:00 11/02/19 10:16 Temperature 36.4 C L Pulse Rate 82 74 Respiratory Rate 22 H Blood Pressure 109/57 L Pulse Oximetry 96 Intake/Output Intake/Output: Intake & Output 10/30/19 10/31/19 11/01/19 11/02/19 23:59 23:59 23:59 23:59 Intake Total 880 730 680 430 Output Total 400 1900 1750 300 Balance 480 1170 -1070 130 Meds/Results Medications: Active Medications Generic Name Dose Route Start Last Admin Trade Name Freq PRN Reason Stop Dose Admin Acetaminophen 1,000 mg 10/23/19 06:05 10/27/19 08:31 Tylenol Tablet BY MOUTH 1,000 mg Q6H PRN Administration Pain or Fever Hydrocodone Bitart/Acetaminophen 1 tab 10/26/19 09:03 11/01/19 19:06 Mitchell 5-325 Mg PO 1 tab Q6H PRN Administration Pain Rated 7-10 Albuterol/Ipratropium 3 ml 10/22/19 13:29 Duoneb 0.5-2.5 Mg Inh Soln INHALATION Q4HRT PRN Shortness Of Breath Bisacodyl 10 mg 10/31/19 13:08 Dulcolax Suppository RECTAL DAILY PRN Constipation Diphenhydramine HCl 25 mg 10/26/19 09:09 11/01/19 21:19 Benadryl Cap PO 25 mg Q6H PRN Administration
[2019-11-02] MEDS: BISACODYL 10 MG SUPPOSITORY RECTAL (14:16)
[2019-11-02 16:00] VITALS: BP 112/52; PULSE 92; RESP 20; TEMP 36.9; O2SAT 99
[2019-11-02 19:44] VITALS: PULSE 88; RESP 20; O2SAT 96
[2019-11-02] MEDS: MELATONIN 5 MG TABLET PO (21:40)
--- NOTE | 2019-11-02 21:45 | PC.NURSE ---
Patient assisted to/from bedside commode with walker and 1 assist with unsteady gait. Patient took PO meds without difficulty. Cream and power applied. Patient requested/given PRN Benadryl. Patient says she's itching constantly. No distress noted. Call light in reach.
--- NOTE | 2019-11-02 22:25 | PC.NURSE ---
Patient appears to be sleeping by the rise and fall of her chest. Respirations even and unlabored. No O2 on. No distress noted. Call light in reach.
[2019-11-02 23:25] VITALS: BP 97/66; PULSE 94; RESP 20; TEMP 36.3; O2SAT 99
[2019-11-03 05:29] LABS: Hematocrit 27.3 % (35.0-42.0); Hemoglobin 8.4 g/dL (11.7-13.8); Mean Corpuscular HGB Conc 30.8 g/dL (32.0-36.0); Mean Corpuscular Hemoglobin 31.3 pg (27.0-31.0); Mean Corpuscular Volume 101.9 fL (78.0-102.0); Mean Platelet Volume 9.6 fl (9.2-11.8); Platelet Count Result 434 K/mm3 (150-420); Red Blood Count 2.68 M/mm3 (4.20-5.40); Red Cell Distribution Width 15.5 % (11.6-14.4)
[2019-11-03] MEDS: NYSTATIN 100,000 UNITS/ML SUSP 5 ML ORAL.SUSP PO (05:37)
[2019-11-03] MEDS: PANTOPRAZOLE 40 MG TABLET PO (05:37)
[2019-11-03] MEDS: FLUTICASONE PROP 220 MCG (*SP) 12 GM INHALER 2 PUFF INHALATION ×2 (05:37→17:59)
[2019-11-03 05:45] LABS: Alanine Aminotransferase 12 U/L (14-59); Albumin Level 1.9 g/dL (3.4-5.0); Alkaline Phosphatase 91 U/L (46-116); Anion Gap 13.7 mmol/L (7-16); Aspartate Amino Transferase 16 U/L (15-37); BNP 121 pg/mL (0-100); Bilirubin,Total 0.2 mg/dL (0.00-1.00); Blood Urea Nitrogen 16 mg/dL (7-18); Calcium 8.4 mg/dL (8.5-10.1); Carbon Dioxide 27 mmol/L (21-32); Chloride 109 mmol/L (98-108); Estimated CRCL calculation 48 ml/min; Estimated Glomerular Filt Rate > 60; Glucose 90 mg/dL (70-99); Osmolality Calculated 303 mOsm/kg (285-295); Potassium 3.7 mmol/L (3.5-5.1); Sodium 146 mmol/L (136-145); Total Protein 5.9 g/dL (6.4-8.2)
--- NOTE | 2019-11-03 05:58 | PC.NURSE ---
Patient took AM medicine without difficulty. Transferred to/from bed with walker and 1 assist with unsteady gait. No distress noted. Call light in reach.
[2019-11-03 07:38] VITALS: BP 122/75; PULSE 100; PULSE 99; RESP 20; TEMP 36.8; O2SAT 98
--- NOTE | 2019-11-03 08:00 | PC.NURSE ---
Contact guard assist from bed to chair, no assistance needed to get up out of bed, minimal assist to get to standing position to steady self to ambulate, oxygen remains on at 2L NC
--- NOTE | 2019-11-03 08:53 | PC.NURSE ---
Ambulated patient from recliner to restroom
[2019-11-03] MEDS: ONDANSETRON HCL ODT 4 MG TABLET PO ×2 (09:08→16:59)
--- NOTE | 2019-11-03 09:10 | PC.NURSE ---
Nauseated after ambulated to bathroom, x2 assist needed for stabilization while ambulated back to chair, legs elevated
--- NOTE | 2019-11-03 09:20 | PC.NURSE ---
Working with therapy
--- NOTE | 2019-11-03 09:40 | PC.NURSE ---
Nausea less at this time, just feeling weak and tired
[2019-11-03 09:44] VITALS: PULSE 90
[2019-11-03] MEDS: METOPROLOL TARTRATE 25 MG TABLET 12.5 MG PO (09:44)
[2019-11-03] MEDS: POTASSIUM CHLORIDE 20 MEQ TABLET 40 MEQ PO (09:44)
[2019-11-03] MEDS: DOCUSATE SODIUM 100 MG CAPSULE PO ×2 (09:44→21:40)
[2019-11-03] MEDS: ESCITALOPRAM OXALATE 10 MG TABLET PO (09:44)
[2019-11-03] MEDS: FUROSEMIDE 40 MG TABLET PO (09:45)
[2019-11-03] MEDS: MAGNESIUM OXIDE 400 MG TABLET PO (09:45)
[2019-11-03] MEDS: levETIRAcetam 500 MG TABLET PO ×2 (09:45→16:59)
[2019-11-03] MEDS: LORATADINE 10 MG TABLET PO (09:46)
[2019-11-03] MEDS: MEGESTROL ACETATE (*CHEMO) 40 MG TABLET PO ×3 (09:46→16:59)
[2019-11-03] MEDS: SALMETEROL XINAFOATE 50 MCG DISKUS 1 PUFF INHALATION ×2 (09:47→21:38)
[2019-11-03] MEDS: LIDOCAINE 5% PATCH 1 PATCH TOPICAL (09:47)
[2019-11-03] MEDS: TRIAMCINOLONE ACET 0.1% CREAM 15 GM TUBE 1 APPLIC TOPICAL ×2 (09:48→21:39)
[2019-11-03] MEDS: TOLNAFTATE 1% POWDER 45 GM BTL 1 APPLIC TOPICAL ×2 (09:48→21:39)
--- NOTE | 2019-11-03 11:10 | PC.NURSE ---
Therapy working with patient
--- NOTE | 2019-11-03 12:46 | PC.NURSE ---
SBA up to commode, did need assist to stand up from chair to commode, oxygen on,
--- NOTE | 2019-11-03 13:52 | PC.NURSE ---
Resting in bed with HOB elevated, oxygen on, personal items in reach of patient
[2019-11-03 15:10] VITALS: BP 127/70; PULSE 93; RESP 16; TEMP 36.9; O2SAT 98
[2019-11-03] MEDS: MELATONIN 5 MG TABLET PO (21:40)
[2019-11-04] MEDS: PANTOPRAZOLE 40 MG TABLET PO (06:01)
[2019-11-04] MEDS: FLUTICASONE PROP 220 MCG (*SP) 12 GM INHALER 2 PUFF INHALATION (06:01)
[2019-11-04] MEDS: ONDANSETRON HCL ODT 4 MG TABLET PO ×2 (06:02→13:11)
[2019-11-04 08:00] VITALS: BP 122/72; PULSE 78; RESP 20; TEMP 36.4; O2SAT 94
[2019-11-04] MEDS: SALMETEROL XINAFOATE 50 MCG DISKUS 1 PUFF INHALATION (09:38)
[2019-11-04] MEDS: LIDOCAINE 5% PATCH 1 PATCH TOPICAL (09:38)
[2019-11-04] MEDS: TRIAMCINOLONE ACET 0.1% CREAM 15 GM TUBE 1 APPLIC TOPICAL (09:39)
[2019-11-04] MEDS: ESCITALOPRAM OXALATE 10 MG TABLET PO (09:40)
[2019-11-04] MEDS: MEGESTROL ACETATE (*CHEMO) 40 MG TABLET PO ×2 (09:40→13:11)
[2019-11-04 09:41] VITALS: PULSE 70
[2019-11-04] MEDS: DOCUSATE SODIUM 100 MG CAPSULE PO (09:41)
[2019-11-04] MEDS: POTASSIUM CHLORIDE 20 MEQ TABLET 40 MEQ PO (09:41)
[2019-11-04] MEDS: METOPROLOL TARTRATE 25 MG TABLET 12.5 MG PO (09:41)
[2019-11-04] MEDS: LORATADINE 10 MG TABLET PO (09:41)
[2019-11-04] MEDS: MAGNESIUM OXIDE 400 MG TABLET PO (09:42)
[2019-11-04] MEDS: POLYSACCHARIDE IRON COMPLEX 150 MG CAPSULE PO (09:43)
[2019-11-04] MEDS: levETIRAcetam 500 MG TABLET PO (09:43)
[2019-11-04] MEDS: FUROSEMIDE 40 MG TABLET PO (09:43)
--- NOTE | 2019-11-04 10:11 | PM.DS ---
DS: Diagnosis Admitting Diagnosis Admitting Diagnosis: Weakness <Jeana Acosta NP - Last Filed: 11/04/19 14:58> Discharge Diagnosis (1) Weakness: Code(s): R53.1 - Weakness <Jeana Acosta NP - Last Filed: 11/04/19 14:58> Status: Acute <Jeana Acosta NP - Last Filed: 11/04/19 14:58> Assessment and Plan: - continue physical therapy occupational therapy -continue proper nutrition for strength - use of DME if needed to prevent falls - patient able to walk with wheeled walker and contact guard assist - physical therapy progressing <Jeana Acosta NP - Last Filed: 11/04/19 14:58> (2) Diverticulitis of intestine with abscess: Code(s): K57.80 - Diverticulitis of intestine, part unspecified, with perforation and abscess without bleeding <Jeana Acosta NP - Last Filed: 11/04/19 14:58> Status: Acute <Jeana Acosta NP - Last Filed: 11/04/19 14:58> Assessment and Plan: IMPROVED/RESOLVED. STABLE. BASELINE. - patient received antibiotics before discharging from [facility] hosp - white count within normal limits and patient afebrile - no signs and symptoms of infection noted - BMP & CBC stable <Jeana Acosta NP - Last Filed: 11/04/19 14:58> (3) CAP (community acquired pneumonia): Code(s): J18.9 - Pneumonia, unspecified organism <Jeana Acosta NP - Last Filed: 11/04/19 14:58> Status: Acute <Jeana Acosta NP - Last Filed: 11/04/19 14:58> Assessment and Plan: IMPROVED/RESOLVED. STABLE. BASELINE. Her CT scan showed Community Acquired pneumonia, but the [facility] CXR did not show pneumonia. 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 BASELINE. 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 She already completed dexamethasone dosing on per her Radiation Oncologist. Continue her daily oral Keppra for seizure prophylaxis. <Jeana Acosta NP - Last Filed: 11/04/19 14:58> (5) Takotsubo cardiomyopathy: Code(s): I51.81 - Takotsubo syndrome <Jeana Acosta NP - Last Filed: 11/04/19 14:58> Status: Acute <Jeana Acosta NP - Last Filed: 11/04/19 14:58> Assessment and Plan: IMPROVED/RESOLVED. STABLE. BASELINE. Stress-induced cardiomyopathy (Takotsubo cardiomyopathy), her last TTE on showed akinesis of mid and distal segments with hypercontractility of the base consistent with ischemia in the LAD territory or Takotsubo cardiomyopathy. LVEF 48%. Will continue her Lasix 40mg PO daily and Metoprolol 12.5 mg PO daily. Daily weights Strict Intake and outputs ordered. After Swing Rehab therapy discharge: Laine is to have a TTE and Cardiology outpatient follow up visit (on the same day) with Dr. Liliya Kohler at [phone] on November 18, 2019 at 9:50am at the [address] Ordered daily KCL replenishment.. <Jeana Acosta NP - Last Filed: 11/04/19 14:58> DS: Summary Time Spent with Patient Time attestation: Total time spent providing and/or coordinating discharge services: >45 minutes <Jeana Acosta NP - Last Filed: 11/04/19 14:58> Exam Const: General: comfortable and no acute distress; No in distress (with coughing and with vest front presser activities) or confusion <Jeana Acosta NP - Last Filed: 11/04/19 14:58> Orientation/consciousness: No confusion <Jeana Anthony
--- NOTE | 2019-11-04 15:14 | PC.NURSE ---
1500 son here and patient dc to his vehicle and report was called to liss
--- NOTE | 2019-11-13 10:38 | PCOTNOTE ---
Patient has been discharged from skilled OT services as she was transferred to [facility] facility where therapy services were recommended. Patient making good progress towards goals, see last treatment note for status towards goals. MS
--- NOTE | 2019-11-16 14:15 | PC.NURSE ---
Discharge call back [phone] Patient at [facility]. Doing well. No questions about dc instructions.
== END 2019-11-04 15:12 | DRG 947 ==
PROVIDERS: Nurse Practitioner; Admitting Provider Emergency Medicine; PCP Nurse Practitioner Family; Visit Provider Emergency Medicine
DX: R53.1 Weakness (principal); J18.9 Pneumonia, unspecified organism; K57.20 Diverticulitis of large intestine with perforation and abscess without bleeding; C79.31 Secondary malignant neoplasm of brain; C78.01 Secondary malignant neoplasm of right lung; C34.32 Malignant neoplasm of lower lobe, left bronchus or lung; I51.81 Takotsubo syndrome; E46 Unspecified protein-calorie malnutrition; J44.9 Chronic obstructive pulmonary disease, unspecified; I50.9 Heart failure, unspecified; E87.6 Hypokalemia; K21.9 Gastro-esophageal reflux disease without esophagitis; F32.9 Major depressive disorder, single episode, unspecified; E55.9 Vitamin D deficiency, unspecified; M81.0 Age-related osteoporosis without current pathological fracture; Z92.3 Personal history of irradiation
CPT/HCPCS: 36415; 80048; 80053; 83735; 83880; 84100; 85027; 85652; 86140; 87081; 93005; 94640; 97110; 97162; 97166; 97530; 97535; A9270